=== PATIENT | female | born 1950 | race Caucasian/White ===

== ENCOUNTER 2016-08-20 07:28 | Inpatient (IN) | payer OTHER, BC ==
[~2016-08-20] VITALS: Ht 157.5 cm; Wt 133.0 kg
[~2016-08-20 07:28] MED LIST: CENTRUM SILVER1 EAC3 PO; GLIMEPIRIDE4 MG PO; HYDROCODON-ACE1 EAC7 PO; LOSARTAN-HCTZ1 EAC1 PO; METFORMIN HCL500 MG PO; NAPROXEN SODIU550 M1 PO; VICTOZA 2-0.6 MG/0.1 SC
[2016-08-20 08:01] VITALS: BP 170/95
[2016-08-20 08:12] LABS: POINT-OF-CARE METER ID UU14174212; POINT-OF-CARE USER ID AHSRSCSLC11
[2016-08-20 16:00] VITALS: BP 173/76
[2016-08-20 17:18] VITALS: BP 173/76
[2016-08-21] VITALS: BP 138/58
[2016-08-21 00:42] VITALS: BP 142/65
[2016-08-21 03:41] VITALS: BP 177/78
[2016-08-21 07:14] VITALS: BP 146/65
[2016-08-21] MEDS ORDERED: HYDROCODON-ACE1 EAC7 PO (08:43)
[2016-08-21] MEDS ORDERED: TIZANIDINE HCL4 MG PO (08:43)
[2016-08-21 09:29] LABS: HEMATOCRIT 39.2 % (36.0-46.0); MCH 26.8 PG (29.0-34.0); MCHC 32.4 G/DL (30.0-36.0); MCV 82.9 FL (83-99); MEAN PLAT.VOLUME 10.1 uM^3 (9.5-12.4); PLATELET COUNT 292 K/uL (156-360); RBC DIS.WIDTH-SD 42.2 % (39-53); RED BLOOD COUNT 4.73 M/uL (3.80-5.20)
[2016-08-21 09:38] LABS: WHITE BLOOD COUNT 12.8 K/uL (4.1-10.2)
[2016-08-21 09:48] LABS: ANION GAP 12 MEQ/L (2-14); CHLORIDE 97 MEQ/L (99-109); GFR ESTIMATE (CALCULATED) 53 mL/min/; GLUCOSE 284 mg/dL (70-99); POTASSIUM 4.4 MEQ/L (3.7-5.4); SAMPLE HEMOLYSIS CHECK 0; SAMPLE ICTERIC CHECK 0; SAMPLE LIPEMIA CHECK 0; SODIUM 134 MEQ/L (136-147); UREA NITROGEN (BUN) 19 mg/dL (9-23)
[2016-08-21 11:37] LABS: POINT-OF-CARE METER ID UU14149397
[2016-08-21 17:11] LABS: POINT-OF-CARE METER ID UU14149397
== END 2016-08-21 18:06 | disposition home or self-care (01) | DRG 460 ==
LOC: 2SOUTH 07:28 → SDC 10:28 → EDSTATUS 11:03 → 2SOUTH 11:04 → 3EAST 16:49
PROVIDERS: Neurological Surgery; Physician Assistant Medical
DX: M51.36 Other intervertebral disc degeneration, lumbar region (principal); M43.16 Spondylolisthesis, lumbar region; E11.65 Type 2 diabetes mellitus with hyperglycemia; Z68.43 Body mass index [BMI] 50.0-59.9, adult; E66.01 Morbid (severe) obesity due to excess calories; E78.5 Hyperlipidemia, unspecified; I10 Essential (primary) hypertension; Z98.1 Arthrodesis status; Z90.49 Acquired absence of other specified parts of digestive tract; Z87.442 Personal history of urinary calculi
CPT/HCPCS: 72100; 76000; 80048; 82948; 85027; C1713; C1768; J0330; J0690; J1170; J1580; J1815; J2405; J2710; J2765; J2930; J3010; J3370; J3480; S0020